=== PATIENT | male | born 2000 | race Two or more races ===

== ENCOUNTER 2020-09-09 11:53 | Emergency (ER) | payer BC ==
[~2020-09-09] VITALS: Ht 172.7 cm; Wt 70.3 kg
--- NOTE | 2020-09-09 12:15 | NUR ---
ED Nurse Note:pt. came from home with c/o chest pain when inhailing deep for 3 days, EKG done
[2020-09-09 12:27] VITALS: BP 128/71
--- NOTE | 2020-09-09 12:42 | NUR ---
ED Nurse Note: blood sample collected for troponin, sent to lab.
[2020-09-09] MEDS: Lidocaine 2% Visc 15ml soln ORAL ONE (13:22)
[2020-09-09] MEDS: Mylanta II UD 30ml ORAL ONE (13:22)
[2020-09-09] MEDS: Dicyclomine HCl 10mg/5ml oral soln ORAL ONE (13:22)
[2020-09-09] MEDS ORDERED: FAMOTIDINE20 MG ORAL (13:44)
[2020-09-09 14:04] VITALS: BP 130/72
--- NOTE | 2020-09-09 14:04 | NUR ---
ER DISCHARGE NOTE: Patient is cleared to be discharged per ERMD, pt is aox4, on room air, with stable vital signs. pt was given dc and prescription instructions, pt was able to verbalize understanding, pt id band removed. pt is able to ambulate with steady gait. pt took all belongings.
--- NOTE | 2020-09-09 14:32 | Emergency Room Report ---
History of Present Illness General Chief Complaint: Pain Source: Patient Present Illness HPI 19-year-old male presents with epigastric pain for 3 days. Dull, epigastric, radiating through the chest. Denies shortness of breath. Thinks he may have acid reflux. Also notes some belching. Denies nausea or vomiting. Denies alcohol or drug use. 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 COVID-19 Screening: Negative COVID-19 COVID-19 Testing Source: nasal Patient History Past Medical History: none Past Surgical History: none Pertinent Family History: none Social History: Denies: smoking, alcohol use, drug use Immunizations: UTD Reviewed Nursing Documentation: PMH: Agreed; PSxH: Agreed Nursing Documentation-PMH Past Medical History: No Stated History Review of Systems All Other Systems: negative except mentioned in HPI Physical Exam Vital Signs Date Time Temp Pulse Resp B/P (MAP) Pulse Ox O2 Delivery O2 Flow Rate FiO2 09/09/20 11:58 97.9 53 16 128/71 (90) 100 Room Air Sp02 EP Interpretation: reviewed, normal General Appearance: no apparent distress, alert, GCS 15, non-toxic Head: normocephalic, atraumatic Eyes: bilateral eye normal inspection, bilateral eye PERRL ENT: hearing grossly normal, normal pharynx, no angioedema, normal voice Neck: full range of motion, supple/symm/no masses Respiratory: chest non-tender, lungs clear, normal breath sounds, speaking full sentences Cardiovascular #1: regular rate, rhythm, no edema Cardiovascular #2: 2+ carotid (R), 2+ carotid (L), 2+ radial (R), 2+ radial (L), 2+ dorsalis pedis (R), 2+ dorsalis pedis (L) Gastrointestinal: normal bowel sounds, non tender, soft, non-distended, no guarding, no rebound Rectal: deferred Genitourinary: normal inspection, no CVA tenderness Musculoskeletal: back normal, normal range of motion, gait/station normal, non- tender Neurologic: alert, motor strength/tone normal, oriented x3, sensory intact, responsive, speech normal Psychiatric: judgement/insight normal, memory normal, mood/affect normal, no suicidal/homicidal ideation Reflexes: 3+ bicep (R), 3+ bicep (L), 3+ tricep (R), 3+ tricep (L), 3+ knee (R), 3+ knee (L) Lymphatic: no adenopathy Medical Decision Making Diagnostic Impression: Primary Impression: Gastritis Qualified Codes: K29.00 - Acute gastritis without bleeding ER Course Hospital Course 19-year-old male presents with epigastric pain/chest pain differential diagnosis: gastritis, SBO, cholecystits Clinical course Patient placed on stretcher. On monitor tech. After initial history exam reveals male in no acute distress. Abdomen soft. No reproducible chest wall pain. I ordered EKG, troponin, GI cocktail EKGnormal sinus rhythm no acute ischemic changes interpreted by me Troponin negative I discussed findings with patient. Patient is young with no cardiac risk factors. Vitals stable. More likely GERD. Will discharge with Pepcid, states he has a PMD. Safe for discharge with close outpatient follow-up I feel this is a highly complex case requiring extensive working including EKG/Rhythm strip, Xray/CT/US, Blood/urine lab work, repeat exams while in ED, and administration of strong opiates/narcotics for pain control, admission to hospital or close patient follow up. Diagnosis - gastritis Stable and discharged to home with prescriptions for pepcid. Followup with PMD. Return to ED if symptoms recur or worsen Laboratory Tests Test 09/09/20 12:42 Troponin I 0.000 ng/mL (0.000-0.056) EKG Diagnostic Results Troponin ordered: Yes Rate: normal Rhythm: NSR ST Segments: no acute changes ASA given to the pt in ED: No Rhythm Strip Diag. Results EP Interpretation: yes Rhythm: NSR, no PVC's, no ectopy Last Vital Signs Date Time Temp Pulse Resp B/P (MAP) Pulse Ox O2 Delivery O2 Flow Rate FiO2 09/09/20 14:04 97.9 60 18 130/72 100 Room Air Status: improved Disposition: HOME, SELF-CARE Condition: Stable Scripts Famotidine* (Pepcid 20mg tablet*) 20 Mg Tablet 20 MG ORAL DAILY for Gerd, #30 TAB 0 Refills Prov: Thad Lim MD 09/09/20 Referrals: NON PHYSICIAN (PCP) [facility] Patient Instructions: Gastritis, Adult, [id number] Thad Lim MD Sep 09, 2020 14:32
== END 2020-09-09 14:04 | disposition home or self-care (01) ==
LOC: EMR 12:26
DX: K29.00 Acute gastritis without bleeding (principal)
CPT/HCPCS: 84484; 93005; 99283

== ENCOUNTER 2020-12-06 13:22 | Emergency (ER) | payer BC ==
[~2020-12-06] VITALS: Ht 172.7 cm; Wt 70.3 kg
[~2020-12-06 13:22] MED LIST: FAMOTIDINE20 MG ORAL
[2020-12-06 14:04] VITALS: BP 114/78
--- NOTE | 2020-12-06 14:07 | NUR ---
Presented to the ER with a lump in his left armpit which appeared approx. 2 weeks ago. The lump per patient went away but came back recently and has become mildy painful.
--- NOTE | 2020-12-06 14:21 | Emergency Room Report ---
History of Present Illness General Chief Complaint: Skin Rash/Abscess Source: Patient Present Illness HPI Disclaimer: Please note that this report is being documented using LEHRON technology. This can lead to erroneous entry secondary to incorrect interpretation by the dictating instrument. HPI: Otherwise healthy 20-year-old male presents for lump in his axilla. He states 2 weeks ago while he was working out he noticed a lump in his left axilla. Nontender. Decreased in size and then returned yesterday. [place] a twinge of pain earlier today but currently no pain. Denies overlying skin redness, breakdown, bleeding, purulent drainage or increased sensitivity. Denies injury or puncture wound. Does not inject any medications. Otherwise denies fever, chills, nausea, vomiting, diarrhea, chest pain, palpitations or other changes in his health. Follows up with PMD regularly. 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 EOMI. Resp: Normal work of breathing Skin: Intact. No abrasions, laceration or rash over the exposed skin. There is a soft, mobile, nontender 2 x 2 centimeter palpable mass in the left axilla. No overlying edema, erythema, skin breakdown. MSK: Normal tone and bulk. Moving all extremities. No obvious deformity. Neuro: Awake and alert. Mentating appropriately Medical Decision Making Diagnostic Impression: Primary Impression: Axillary lump ER Course 20-year-old male presents for evaluation of nontender lump in the left axilla. Differential includes not limited to lipoma, cyst, abscess, cellulitis, neoplasm, lymphadenopathy among others. He is well-appearing with no external signs of infection. Given that the mass initially disappeared and then returned suspect cystic lesion though cannot exclude neoplasm or other significant pathology. Patient is stable for outpatient follow-up with PMD. He will see his doctor for referral for formal ultrasound imaging as well as biopsy. I instructed him to return with signs of infection or changes in his health. He understands and agrees with the treatment plan. Last Vital Signs Date Time Temp Pulse Resp B/P (MAP) Pulse Ox O2 Delivery O2 Flow Rate FiO2 12/06/20 14:11 Room Air 12/06/20 14:04 98.2 78 18 114/78 (90) 98 Disposition: HOME, SELF-CARE Condition: Stable Referrals: [facility] Additional Instructions: follow-up with your primary care doctor for referral to dermatology. Recommending formal ultrasound evaluation of this lump in the armpit and possible biopsy as needed. If you see signs of infection including warmth to the area, pain, increase in size or skin breakdown return to the emergency department for reevaluation. Joseph Hightower MD Dec 06, 2020 14:21
== END 2020-12-06 14:20 | disposition home or self-care (01) ==
LOC: EMR 14:10
DX: R22.32 Localized swelling, mass and lump, left upper limb (principal)
CPT/HCPCS: 99281